=== PATIENT | female | born 1990 | race Caucasian/White ===

== ENCOUNTER → 2018-07-02 12:17 | Outpatient (CLI) | payer BC, SELFPAY ==
[2018-07-02 14:08] LABS: Influenza A and B by PCR Rapid Negative (Negative)
== END ==
PROVIDERS: Visit Provider Physician Assistant
DX: R68.89 Other general symptoms and signs (principal)
CPT/HCPCS: 87400

== ENCOUNTER 2018-07-04 17:46 | Emergency (ER) | payer BC, SELFPAY ==
[2018-07-04 18:06] VITALS: BP 116/83; PULSE 108; RESP 18; TEMP 36.9; O2SAT 100; BMI 32.3
[2018-07-04] MEDS: LIDOCAINE VISCOUS 2% 15 ML SOLUTION PO (19:09)
--- NOTE | 2018-07-04 19:09 | ED_ITS ---
HPI - URI/Sore Throat General Chief Complaint: Upper Respiratory Symptoms Stated Complaint: jaw swelling, given antibiotics,not better Time Seen by Provider: 07/04/18 18:50 Source: patient Mode of arrival: ambulatory Limitations: no limitations History of Present Illness HPI Narrative: patient a 27-year-old female presents with sore throat ongoing for about 6 days. She was seen evaluated at the walk-in 07/02/2018 she is diagnosed with strep she was started on amoxicillin 500 mg twice a day she says it is not helping. She continues to have pain she actually has some sores on her mouth. He is drinking some fluids. She had Motrin at around 530. MD Complaint: fever and sore throat Exacerbating factors: swallowing Related Data Previous Rx's Medication Instructions Recorded amoxicillin 500 mg capsule 500 mg PO BID 10 Days #20 cap 07/02/18 Magic mouthwash 5 ml PO TID #90 ml 07/04/18 amoxicillin 500 mg PO TID 3 Days #9 cap 07/04/18 Allergies Allergy/AdvReac Type Severity Reaction Status Date / Time bee pollen [BEE POLLEN] Allergy Severe Swelling Verified 07/04/18 18:10 shellfish derived Allergy Severe Anaphalaxis Verified 07/04/18 18:10 [SHELLFISH DERIVED] Review of Systems Review of Systems ROS Unobtainable: All systems reviewed & are unremarkable except as noted in HPI and below ENT Ears, Nose, Mouth, and Throat: Reports as per HPI, Denies change in voice, Denies hoarseness, Reports throat swelling and Denies tongue swelling Cardiovascular Denies dyspnea and Denies dyspnea on exertion Respiratory Denies cough, Denies dyspnea, Denies dyspnea on exertion and Denies wheezing Gastrointestinal Gastrointestinal: Denies abdominal pain, Denies change in bowel habits, Denies diarrhea, Denies nausea and Denies vomiting Musculoskeletal Denies back pain, Denies muscle weakness, Denies numbness and Denies tingling Integumentary/Breasts Denies pruritus, Denies erythema, Denies rash and Denies wounds Neurologic Denies numbness and Denies tingling Allergic/Immunologic Reports throat swelling, Denies tongue swelling and Denies wheezing [facility] Social History Smoking Status: Never smoker Exam Initial Vital Signs Initial Vital Signs: Vital Signs Temperature 98.4 F 07/04/18 18:06 Pulse Rate 108 H 07/04/18 18:06 Respiratory Rate 18 07/04/18 18:06 Blood Pressure 116/83 07/04/18 18:06 Pulse Oximetry 100 07/04/18 18:06 GENERAL: tearful crying appears in HEENT: Head atraumatic,EOMI, pupils reactive, [PHARYNX:] erythematous right tonsil is quite enlarged with exudate. Uvula is touching right tonsil but uvula itself airway some cervical anterior lymphadenopathy right. She is managing secretions. Does appear to have some canker sores well CARDIOVASCULAR: Regular rate and rhythm without murmurs, rubs or gallops. no stridor, no change in voice RESPIRATORY: Breath sounds equal bilaterally, no wheezes rales or rhonchi. ABDOMEN: Soft, nontender. Normoactive bowel sounds all 4 quadrants. No guarding or rebound. EXTREMITIES: Normal range of motion, no clubbing or edema. Neurovascularly intact NEUROLOGICAL: Alert and oriented x4. SKIN: Warm, dry, no laceration, no petechiae, no rashes or lesions. Course Orders Ordered: Discontinued Medications Dexamethasone (Decadron) 10 mg PO NOW ONE Stop: 07/04/18 19:01 Last Admin: 07/04/18 19:10 Dose: 10 mg Lidocaine HCl (Viscous Lidocaine 2%) 15 ml PO NOW ONE Stop: 07/04/18 19:01 Last Admin: 07/04/18 19:09 Dose: 15 ml Vital Signs - 8 hr 07/04/18 18:06 07/04/18 20:04 Temperature 98.4 F Pulse Rate 108 H 104 H Respiratory Rate 18 16 Blood Pressure 116/83 107/85 Pulse Oximetry 100 99 MDM - URI/Sore Throat Lab Data Point of Care Testing Rapid Strep A Negative [facility] Narrative Medical decision making narrative: ETIOLOGIES CONSIDERED: PERITONSILLAR ABSCESS, RETRO PHARYNGEAL ABSCESS. At this time patient does not have hard palate swelling or significant uvula deviation, the uvula is touching the right tonsil but is itself is not swollen. She also is managing her own secretions. No hoarse voice. PATIENT'S MOUTH DOES FEEL BETTER AFTER SOME VISCOUS LIDOCAINE. I suspect patient is partially treated because her strep test is negative. His however she does not feel like her symptoms have improved recommend continuing amoxicillin he likely needs longer. She is able to drink fluids. I discussed all findings with the patient, Education has been performed regarding treatment plan, diagnosis, warning signs and symptoms and all concerns have been addressed. Verbally agree with and understood all of the above. Discharge Plan Departure Patient Disposition: Home Clinical Impression: Acute streptococcal pharyngitis Discharge Date/Time: 07/04/18 20:05 Interventions: ED Discharge Assessment Last Done: 07/04/18 20:04 Instructions: Strep Throat Activity Restrictions/Additional Instructions: *You have been diagnosed with strep pharyngitis *What to do: strep is negative today which is a sign that the antibiotic is working. *Continue to take medications as directed: FAXED TO [facility] Magic mouthwash swish and swallow before meals amoxicillin 500 mg 3 times a day *Follow up with your primary care provider in 2-3 days *Return to ER if you should have Inability to swallow your own spit, change in voice, worsening pain any new, worsening or concerning symptoms Prescriptions: New amoxicillin 500 mg capsule 500 mg PO TID 3 Days Qty: 9 RF: 0 Magic mouthwash 5 ml PO TID Qty: 90 RF: 0 No Action amoxicillin 500 mg capsule 500 mg PO BID 10 Days Qty: 20 RF: 0
[2018-07-04] MEDS: DEXAMETHASONE 10 MG/ML VIAL PO (19:10)
[2018-07-04 20:04] VITALS: BP 107/85; PULSE 104; RESP 16; O2SAT 99
== END 2018-07-04 20:05 | disposition home or self-care (01) ==
PROVIDERS: Emergency Provider Emergency Medicine
DX: J02.0 Streptococcal pharyngitis (principal)
CPT/HCPCS: 87880; 99282; 99283; J1100

== ENCOUNTER 2018-10-16 20:50 | Emergency (ER) | payer BC, OTHER, MEDICAID, SELFPAY ==
[2018-10-16 21:00] VITALS: BP 115/80; PULSE 109; RESP 22; TEMP 36.6; O2SAT 100
[2018-10-16 21:27] LABS: Add Manual Diff / Slide Review NO; Basophils Absolute Auto 100 /uL (0-100); Basophils Percent Auto 0.7 % (0-2); Eosinophils Absolute Auto 300 /uL (0-450); Eosinophils Percent Auto 2.6 % (2-4); Hematocrit 43.5 % (36-46); Hemoglobin 14.5 g/dL (12.0-16.0); Lymphocytes Absolute Auto 2700 /uL (1100-4500); Lymphocytes Percent Auto 26.5 % (25-40); Mean Corpuscular HGB Conc 33.3 % (30-36); Mean Corpuscular Hemoglobin 28.9 PG (26-34); Mean Corpuscular Volume 86.8 fL (80-100); Monocytes Absolute Auto 800 /uL (0-900); Monocytes Percent Auto 7.9 % (3-14); Neutrophils Absolute Auto 6200 /uL (1500-7000); Neutrophils Percent Auto 62.3 % (50-75); Platelet Count 357 X10^3/uL (150-400); Red Blood Cell Count 5.01 X10^6/uL (4.0-5.2); Red Cell Distribution Width 13.7 % (11.6-14.8)
[2018-10-16 21:37] LABS: Alanine Aminotransferase 19 IU/L (9-52); Albumin 4.4 g/dL (3.5-5.0); Albumin Globulin Ratio 1.3 (1.0-2.8); Alkaline Phosphatase 56 U/L (38-126); Aspartate Aminotransferase 21 IU/L (14-36); BUN Creatinine Ratio 12.5 (6-22); Bilirubin Total 0.3 mg/dL (0.2-1.3); Blood Urea Nitrogen 10 mg/dL (7-17); Calcium 9.3 mg/dL (8.4-10.2); Carbon Dioxide 24 mmol/L (22-32); Chloride 105 mmol/L (98-107); Estimated Glomerular Filt Rate > 60.0 mL/min (>60); Globulin 3.4 g/dL (1.7-4.1); Glucose 82 mg/dL (70-100); HEMOLYSIS 21 (0-50); Potassium 3.8 mmol/L (3.4-5.1); Sodium 139 mmol/L (137-145); Total Protein 7.8 g/dL (6.3-8.2)
[2018-10-16 21:54] LABS: HCG Quantitative /Beta subunit 2330.1 mIU/mL
--- NOTE | 2018-10-16 21:58 | DI.US.S_ITS ---
PROCEDURE: US OB <= 14 WEEKS FETUS INDICATIONS: POSITIVE HUMAN CHORIONIC GONADOTROPIN, VAGINAL BLEEDING OUTSIDE/PRIOR DATING DATA: Last menstrual period (LMP): 09/02/18. LMP-based estimated date of delivery (LATRELL): 06/09/19. First dating scan (date and location): 10/16/18. Estimated date of delivery (LATRELL) from first dating scan: 06/12/19. TECHNIQUE: Real-time scanning was performed of the fetus and maternal pelvic organs, with image documentation. COMPARISON: None. FINDINGS: Embryo: Single living intrauterine gestation identified. pole was noted. [place]-rump length measures 0.3 cm corresponding to ultrasound gestational age of 5 weeks 6 days. heart rate measured at 110 beats per minute. Measurement variability in dating: +/- 4 weeks by LMP, +/- 7 days by mean sac diameter (use before 6 weeks gestation if crown-rump length not able to be measured), +/- 5 days by crown-rump length (up to 8 weeks 6 days gestation), +/- 7 days by crown-rump length (up to 13 weeks 6 days gestation). Maternal organs: Right corpus luteal cyst noted. Limited images through the kidneys demonstrate no hydronephrosis. IMPRESSION: Single living intrauterine with ultrasound estimated gestational age of 5 weeks 6 days corresponding to ultrasound LATRELL of 06/12/19. Dictated by: Tosin Roberts MD, PhD on 10/17/2018 at 9:17 Approved by: Tosin Roberts MD, PhD on 10/17/2018 at 9:19
[2018-10-16 22:49] VITALS: BP 105/71; PULSE 90; RESP 17; O2SAT 99
--- NOTE | 2018-10-17 00:09 | ED.PREGNANCY ---
HPI - General Chief complaint: Vaginal Bleeding Stated complaint: , not sure how far, bleeding Time Seen by Provider: 10/16/18 22:05 Source: patient and family Mode of arrival: ambulatory Limitations: no limitations History of Present Illness HPI Narrative: 27-year-old female nonsmoker in early presents with mild pelvic cramping and some spotting. She is not dizzy or weak or lightheaded. She denies dysuria, frequency or urgency. She denies any fever or shaking chills. She has yet to establish with Ob. She states her bleeding is minimal and certainly does not come close to saturating a pad Onset (ago): hour(s) Pain Consistency: intermittent Location: pelvis Severity: mild Quality: Cramping Relieving factors: none Exacerbating factors: none Associated symptoms: vaginal bleeding Vaginal discharge: none Vaginal bleeding: light and clots Patient : Yes OB History - Current : no complications OB History - Previous Pregnancies: no complications Related Data Previous Rx's Medication Instructions Recorded hydrocodone-acetaminophen [[place]] 1 tab PO Q4-6H PRN #7 tab 10/18/18 Allergies Allergy/AdvReac Type Severity Reaction Status Date / Time bee pollen [BEE POLLEN] Allergy Severe Swelling Verified 10/18/18 10:48 shellfish derived Allergy Severe Anaphalaxis Verified 10/18/18 10:48 [SHELLFISH DERIVED] Review of Systems Constitutional Denies chills, Denies fever(s), Denies lethargy and Denies weakness Eyes Denies change in vision, Denies eye discharge, Denies irritation and Denies loss of vision ENT Ears, Nose, Mouth, and Throat: Denies change in voice, Denies neck pain and Denies sore throat Cardiovascular Denies chest pain, Denies irregular heart rhythm, Denies lightheadedness, Denies palpitations, Denies dyspnea, Denies dyspnea on exertion and Denies orthopnea Respiratory Denies cough, Denies dyspnea, Denies dyspnea on exertion and Denies wheezing Gastrointestinal Gastrointestinal: Denies abdominal pain, Denies change in bowel habits, Denies diarrhea, Denies nausea and Denies vomiting Genitourinary Reports abnormal vaginal bleeding, Denies hematuria, Reports pelvic pain, Denies flank pain, Denies urinary incontinence and Denies urinary urgency Musculoskeletal Denies neck pain Integumentary/Breasts Denies pruritus, Denies erythema, Denies rash and Denies wounds Neurologic Denies confusion, Denies loss of vision and Denies weakness Psychiatric Denies anxiety, Denies confusion, Denies depression, Denies homicidal ideation and Denies suicidal ideation Endocrine Denies palpitations Hematologic/Lymphatic Denies easy bruising Allergic/Immunologic Denies wheezing PMFSH - Past Medical History Patient : Yes Exam Initial Vital Signs Initial Vital Signs: Vital Signs Temperature 97.8 F 10/16/18 21:00 Pulse Rate 109 H 10/16/18 21:00 Respiratory Rate 22 10/16/18 21:00 Blood Pressure 115/80 10/16/18 21:00 Pulse Oximetry 100 10/16/18 21:00 Const General: cooperative and well developed Nutritional Appearance: well nourished Orientation: alert, awake, oriented x3 and not confused HENGA Head: normocephalic and atraumatic Ears: external ears normal and TM's normal bilaterally Nose: external nose normal and No nasal discharge Face and sinus: sinuses nontender, face symmetric, no sinus tenderness and No dry mucous membranes Mouth: oral mucosae normal and moist mucous membranes Teeth and gingiva: dentition normal Throat: tonsils normal and uvula midline Eyes General: appearance normal, both eyes and all related structures Eyelids: eyelids normal Conjunctivae: conjunctivae normal Sclera: sclerae normal Pupils: PERRL EOM: EOM intact bilaterally Neck Neck: normal visual inspection, trachea midline, No lymphadenopathy, No midline deformity and No JVD Lymphatic: No lymphedema Chest Chest: normal inspection of the chest Resp Effort & Inspection: normal respiratory effort, able to speak in complete sentences, no respiratory distress and no use of accessory muscles Auscultation: clear to auscultation bilaterally, no rales, no rhonchi and no wheezes Cardio Rate: regular rate Rhythm: regular rhythm Heart Sounds: no click, no gallops, no murmurs and no rubs Pulses: normal peripheral pulses GI Inspection: non-distended Palpation: soft, no hepatosplenomegaly, No guarding, No pulsatile mass and No tender Auscultation: normal bowel sounds Back/Spine/Pelvis Back: No CVA tenderness Cervical Spine: cervical ROM normal and No pain with cervical ROM Thoracic/Lumbar Spine: thoracic and lumbar spine normal to inspection Skin General: no rashes or lesions noted, No jaundice and No petechiae Neuro General: alert, oriented x3, gait normal and no focal motor deficits Speech: speech normal Extrem General: full ROM, no clubbing, cyanosis or edema, no pedal edema and no calf tenderness Psych Appearance: well kempt Mental Status: mental status grossly normal Attitude: cooperative Thought Content: normal and suicidality Judgment: judgment good Course Orders Ordered: ED Orders 10/16/18 21:15 ABO RH Type Stat Beta HCG, Quant [HCG Quantitative] Stat Complete Blood Count AUTO DIFF Stat Comprehensive Metabolic Panel Stat 10/16/18 21:58 OB <= 14 weeks fetus Stat Vital Signs - 8 hr 10/16/18 21:00 10/16/18 22:49 Temperature 97.8 F Pulse Rate 109 H 90 Respiratory Rate 22 17 Blood Pressure 115/80 Blood Pressure [Left Arm] 105/71 Pulse Oximetry 100 99 MDM - OB/Uterine Contractions Lab Data Result diagrams: 10/16/18 21:15 10/16/18 21:15 Lab Results 10/16/18 10/16/18 10/16/18 Range/Units 21:15 21:15 21:15 WBC 10.0 (4.5-11.0) X10^3/uL RBC 5.01 (4.0-5.2) X10^6/uL Hgb 14.5 (12.0-16.0) g/dL Hct 43.5 (36-46) % MCV 86.8 (80-100) fL MCH 28.9 (26-34) PG MCHC 33.3 (30-36) % RDW 13.7 (11.6-14.8) % Plt Count 357 (150-400) X10^3/uL Neut % (Auto) 62.3 (50-75) % Lymph % (Auto) 26.5 (25-40) % [place] % (Auto) 7.9 (3-14) % Eos % (Auto) 2.6 (2-4) % Baso % (Auto) 0.7 (0-2) % Neut # (Auto) 6200 (6138-1332) /uL Lymph # (Auto) 2700 (0993-0032) /uL [place] # (Auto) 800 (0-900) /uL Eos # (Auto) 300 (0-450) /uL Baso # (Auto) 100 (0-100) /uL Sodium 139 (137-145) mmol/L Potassium 3.8 (3.4-5.1) mmol/L Chloride 105 (98-107) mmol/L Carbon Dioxide 24 (22-32) mmol/L BUN 10 (7-17) mg/dL Creatinine 0.80 (0.52-1.04) mg/dL Estimated GFR > 60.0 (>60) mL/min BUN/Creatinine Ratio 12.5 (6-22) Glucose 82 (70-100) mg/dL Calcium 9.3 (8.4-10.2) mg/dL Total Bilirubin 0.3 (0.2-1.3) mg/dL AST 21 (14-36) IU/L ALT 19 (9-52) IU/L Alkaline Phosphatase 56 (38-126) U/L Total Protein 7.8 (6.3-8.2) g/dL Albumin 4.4 (3.5-5.0) g/dL Globulin 3.4 (1.7-4.1) g/dL Albumin/Globulin Ratio 1.3 (1.0-2.8) HCG, Quant 2330.1 mIU/mL Blood Type O Positive Point of Care Testing Test Results Positive Urine Dip Bedside Urine Glucose Negative Bedside Urine Bilirubin - Negative Bedside Urine Ketone - Negative Urine Specific [place] 1.015 Bedside Urine Occult Blood +++ Bedside Urine pH 6.5 Bedside Urine Protein - Negative Bedside Urine Urobilinogen - Negative Bedside Urine Nitrite - Negative Bedside Urine Leukocytes +/- 15 Esterase Imaging Data US - abdomen: Radiologist's impression: [place] [address] Ultrasound Report Signed Patient: Melissa Castelan R#: [id number] : 1990Acct:[id number] Age/Sex: te of Service: 10/16/18 Loc: ED Accession Number: [id number] Procedure: US OB <= 14 weeks fetus Ordering Provider: Danelle Dodd PROCEDURE: US OB <= 14 WEEKS FETUS INDICATIONS: POSITIVE HUMAN CHORIONIC GONADOTROPIN, VAGINAL BLEEDING OUTSIDE/PRIOR DATING DATA: Last menstrual period (LMP): 09/02/18. LMP-based estimated date of delivery (LATRELL): 06/09/19. First dating scan (date and location): 10/16/18. Estimated date of delivery (LATRELL) from first dating scan: 06/12/19. TECHNIQUE: Real-time scanning was performed of the fetus and maternal pelvic organs, with image documentation. COMPARISON: None. FINDINGS: Embryo: Single living intrauterine gestation identified. pole was noted. [place]-rump length measures 0.3 cm corresponding to ultrasound gestational age of 5 weeks 6 days. heart rate measured at 110 beats per minute. Measurement variability in dating: +/- 4 weeks by LMP, +/- 7 days by mean sac diameter (use before 6 weeks gestation if crown-rump length not able to be measured), +/- 5 days by crown-rump length (up to 8 weeks 6 days gestation), +/- 7 days by crown-rump length (up to 13 weeks 6 days gestation). Maternal organs: Right corpus luteal cyst noted. Limited images through the kidneys demonstrate no hydronephrosis. IMPRESSION: Single living intrauterine with ultrasound estimated gestational age of 5 weeks 6 days corresponding to ultrasound LATRELL of 06/12/19. Dictated by: Tosin Roberts MD, PhD on 10/17/2018 at 9:17 MDM Narrative Medical decision making narrative: Multiple etiologies for patient's symptoms considered including: [Implantation bleeding versus early miscarriage versus other] Patient's symptoms improved or duration of stay with above-stated therapies. Findings and discharge diagnosis discussed with patient/family followed by verbalization of understanding Return precautions discussed with patient/family whom verbalize understanding. Discharge Plan Departure Patient Disposition: Home Clinical Impression: Abnormal vaginal bleeding Qualifiers: Weeks of gestation: less than 8 weeks Qualified Code(s): Z3A.01 - Less than 8 weeks gestation of Discharge Date/Time: 10/17/18 00:27 Interventions: ED Discharge Assessment Last Done: 10/17/18 00:27 Instructions: DI for Vaginal Bleeding During Activity Restrictions/Additional Instructions: *You have been diagnosed with [vaginal bleeding during early ] *What to do: *Take medications as directed *Follow up with your OB provider in 2-3 days, call for an appointment. Let them know you were seen in the Emergency Department and that we ask that you be seen in follow up *Return to ER if you should have any new, worsening or concerning symptoms, such as [increasing pain, bleeding through more than 1 pad per hour, fever over 101 F versus other] Prescriptions: No Action hydrocodone-acetaminophen [[place]] 5-325 mg tablet 1 tab PO Q4-6H PRN (Reason: pain) Qty: 7 RF: 0 Referrals: Leeroy Ren MD [Physician] -
[2018-10-17 00:27] VITALS: BP 101/70; PULSE 85; RESP 16
--- NOTE | 2018-10-19 07:58 | ED_ITS ---
HPI - General Chief complaint: Vaginal Bleeding Stated complaint: , not sure how far, bleeding Time Seen by Provider: 10/16/18 22:05 Source: patient and family Mode of arrival: ambulatory Limitations: no limitations History of Present Illness HPI Narrative: 27-year-old female nonsmoker in early presents with mild pelvic cramping and some spotting. She is not dizzy or weak or light headed. She denies dysuria, frequency or urgency. She denies any fever or shaking chills. She has yet to establish with Ob. She states her bleeding is minimal and certainly does not come close to saturating a pad Onset (ago): hour(s) Pain Consistency: intermittent Location: pelvis Severity: mild Quality: Cramping Relieving factors: none Exacerbating factors: none Associated symptoms: vaginal bleeding Vaginal discharge: none Vaginal bleeding: light and clots Patient : Yes OB History - Current : no complications OB History - Previous Pregnancies: no complications Related Data Previous Rx's Medication Instructions Recorded hydrocodone-acetaminophen [[place]] 1 tab PO Q4-6H PRN #7 tab 10/18/18 Allergies Allergy/AdvReac Type Severity Reaction Status Date / Time bee pollen [BEE POLLEN] Allergy Severe Swelling Verified 10/18/18 10:48 shellfish derived Allergy Severe Anaphalaxis Verified 10/18/18 10:48 [SHELLFISH DERIVED] Review of Systems Constitutional Denies chills, Denies fever(s), Denies lethargy and Denies weakness Eyes Denies change in vision, Denies eye discharge, Denies irritation and Denies loss of vision ENT Ears, Nose, Mouth, and Throat: Denies change in voice, Denies neck pain and Denies sore throat Cardiovascular Denies chest pain, Denies irregular heart rhythm, Denies lightheadedness, Denies palpitations, Denies dyspnea, Denies dyspnea on exertion and Denies orthopnea Respiratory Denies cough, Denies dyspnea, Denies dyspnea on exertion and Denies wheezing Gastrointestinal Gastrointestinal: Denies abdominal pain, Denies change in bowel habits, Denies diarrhea, Denies nausea and Denies vomiting Genitourinary Reports abnormal vaginal bleeding, Denies hematuria, Reports pelvic pain, Denies flank pain, Denies urinary incontinence and Denies urinary urgency Musculoskeletal Denies neck pain Integumentary/Breasts Denies pruritus, Denies erythema, Denies rash and Denies wounds Neurologic Denies confusion, Denies loss of vision and Denies weakness Psychiatric Denies anxiety, Denies confusion, Denies depression, Denies homicidal ideation and Denies suicidal ideation Endocrine Denies palpitations Hematologic/Lymphatic Denies easy bruising Allergic/Immunologic Denies wheezing PMFSH - Past Medical History Patient : Yes Exam Initial Vital Signs Initial Vital Signs: Vital Signs Temperature 97.8 F 10/16/18 21:00 Pulse Rate 109 H 10/16/18 21:00 Respiratory Rate 22 10/16/18 21:00 Blood Pressure 115/80 10/16/18 21:00 Pulse Oximetry 100 10/16/18 21:00 Const General: cooperative and well developed Nutritional Appearance: well nourished Orientation: alert, awake, oriented x3 and not confused HENUT Head: normocephalic and atraumatic Ears: external ears normal and TM's normal bilaterally Nose: external nose normal and No nasal discharge Face and sinus: sinuses nontender, face symmetric, no sinus tenderness and No dry mucous membranes Mouth: oral mucosae normal and moist mucous membranes Teeth and gingiva: dentition normal Throat: tonsils normal and uvula midline Eyes General: appearance normal, both eyes and all related structures Eyelids: eyelids normal Conjunctivae: conjunctivae normal Sclera: sclerae normal Pupils: PERRL EOM: EOM intact bilaterally Neck Neck: normal visual inspection, trachea midline, No lymphadenopathy, No midline deformity and No JVD Lymphatic: No lymphedema Chest Chest: normal inspection of the chest Resp Effort & Inspection: normal respiratory effort, able to speak in complete sentences, no respiratory distress and no use of accessory muscles Auscultation: clear to auscultation bilaterally, no rales, no rhonchi and no wheezes Cardio Rate: regular rate Rhythm: regular rhythm Heart Sounds: no click, no gallops, no murmurs and no rubs Pulses: normal peripheral pulses GI Inspection: non-distended Palpation: soft, no hepatosplenomegaly, No guarding, No pulsatile mass and No tender Auscultation: normal bowel sounds Back/Spine/Pelvis Back: No CVA tenderness Cervical Spine: cervical ROM normal and No pain with cervical ROM Thoracic/Lumbar Spine: thoracic and lumbar spine normal to inspection Skin General: no rashes or lesions noted, No jaundice and No petechiae Neuro General: alert, oriented x3, gait normal and no focal motor deficits Speech: speech normal Extrem General: full ROM, no clubbing, cyanosis or edema, no pedal edema and no calf tenderness Psych Appearance: well kempt Mental Status: mental status grossly normal Attitude: cooperative Thought Content: normal and suicidality Judgment: judgment good Course Orders Ordered: ED Orders 10/16/18 21:15 ABO RH Type Stat Beta HCG, Quant [HCG Quantitative] Stat Complete Blood Count AUTO DIFF Stat Comprehensive Metabolic Panel Stat 10/16/18 21:58 OB <= 14 weeks fetus Stat Vital Signs - 8 hr 10/16/18 21:00 10/16/18 22:49 Temperature 97.8 F Pulse Rate 109 H 90 Respiratory Rate 22 17 Blood Pressure 115/80 Blood Pressure [Left Arm] 105/71 Pulse Oximetry 100 99 MDM - OB/Uterine Contractions Lab Data Result diagrams: 10/16/18 21:15 10/16/18 21:15 Lab Results 10/16/18 10/16/18 10/16/18 Range/Units 21:15 21:15 21:15 WBC 10.0 (4.5-11.0) X10^3/uL RBC 5.01 (4.0-5.2) X10^6/uL Hgb 14.5 (12.0-16.0) g/dL Hct 43.5 (36-46) % MCV 86.8 (80-100) fL MCH 28.9 (26-34) PG MCHC 33.3 (30-36) % RDW 13.7 (11.6-14.8) % Plt Count 357 (150-400) X10^3/uL Neut % (Auto) 62.3 (50-75) % Lymph % (Auto) 26.5 (25-40) % [place] % (Auto) 7.9 (3-14) % Eos % (Auto) 2.6 (2-4) % Baso % (Auto) 0.7 (0-2) % Neut # (Auto) 6200 (1320-8435) /uL Lymph # (Auto) 2700 (7470-6420) /uL [place] # (Auto) 800 (0-900) /uL Eos # (Auto) 300 (0-450) /uL Baso # (Auto) 100 (0-100) /uL Sodium 139 (137-145) mmol/L Potassium 3.8 (3.4-5.1) mmol/L Chloride 105 (98-107) mmol/L Carbon Dioxide 24 (22-32) mmol/L BUN 10 (7-17) mg/dL Creatinine 0.80 (0.52-1.04) mg/dL Estimated GFR > 60.0 (>60) mL/min BUN/Creatinine Ratio 12.5 (6-22) Glucose 82 (70-100) mg/dL Calcium 9.3 (8.4-10.2) mg/dL Total Bilirubin 0.3 (0.2-1.3) mg/dL AST 21 (14-36) IU/L ALT 19 (9-52) IU/L Alkaline Phosphatase 56 (38-126) U/L Total Protein 7.8 (6.3-8.2) g/dL Albumin 4.4 (3.5-5.0) g/dL Globulin 3.4 (1.7-4.1) g/dL Albumin/Globulin Ratio 1.3 (1.0-2.8) HCG, Quant 2330.1 mIU/mL Blood Type O Positive Point of Care Testing Test Results Positive Urine Dip Bedside Urine Glucose Negative Bedside Urine Bilirubin - Negative Bedside Urine Ketone - Negative Urine Specific [place] 1.015 Bedside Urine Occult Blood +++ Bedside Urine pH 6.5 Bedside Urine Protein - Negative Bedside Urine Urobilinogen - Negative Bedside Urine Nitrite - Negative Bedside Urine Leukocytes +/- 15 Esterase Imaging Data US - abdomen: Radiologist's impression: [place] [address] Ultrasound Report Signed Patient: Melissa Castelan R#: [id number] : 1990Acct:[id number] Age/Sex: te of Service: 10/16/18 Loc: ED Accession Number: [id number] Procedure: US OB <= 14 weeks fetus Ordering Provider: Danelle Dodd PROCEDURE: US OB <= 14 WEEKS FETUS INDICATIONS: POSITIVE HUMAN CHORIONIC GONADOTROPIN, VAGINAL BLEEDING OUTSIDE/PRIOR DATING DATA: Last menstrual period (LMP): 09/02/18. LMP-based estimated date of delivery (LATRELL): 06/09/19. First dating scan (date and location): 10/16/18. Estimated date of delivery (LATRELL) from first dating scan: 06/12/19. TECHNIQUE: Real-time scanning was performed of the fetus and maternal pelvic organs, with image documentation. COMPARISON: None. FINDINGS: Embryo: Single living intrauterine gestation identified. pole was noted. [place]-rump length measures 0.3 cm corresponding to ultrasound gestational age of 5 weeks 6 days. heart rate measured at 110 beats per minute. Measurement variability in dating: +/- 4 weeks by LMP, +/- 7 days by mean sac diameter (use before 6 weeks gestation if crown-rump length not able to be measured), +/- 5 days by crown-rump length (up to 8 weeks 6 days gestation), +/- 7 days by crown-rump length (up to 13 weeks 6 days gestation). Maternal organs: Right corpus luteal cyst noted. Limited images through the kidneys demonstrate no hydronephrosis. IMPRESSION: Single living intrauterine with ultrasound estimated gestational age of 5 weeks 6 days corresponding to ultrasound LATRELL of 06/12/19. Dictated by: Tosin Roberts MD, PhD on 10/17/2018 at 9:17 MDM Narrative Medical decision making narrative: Multiple etiologies for patient's symptoms considered including: [Implantation bleeding versus early miscarriage versus other] Patient's symptoms improved or duration of stay with above-stated therapies. Findings and discharge diagnosis discussed with patient/family followed by verbalization of understanding Return precautions discussed with patient/family whom verbalize understanding. Discharge Plan Departure Patient Disposition: Home Clinical Impression: Abnormal vaginal bleeding Qualifiers: Weeks of gestation: less than 8 weeks Qualified Code(s): Z3A.01 - Less than 8 weeks gestation of Discharge Date/Time: 10/17/18 00:27 Interventions: ED Discharge Assessment Last Done: 10/17/18 00:27 Instructions: DI for Vaginal Bleeding During Activity Restrictions/Additional Instructions: *You have been diagnosed with [vaginal bleeding during early ] *What to do: *Take medications as directed *Follow up with your OB provider in 2-3 days, call for an appointment. Let them know you were seen in the Emergency Department and that we ask that you be seen in follow up *Return to ER if you should have any new, worsening or concerning symptoms, such as [increasing pain, bleeding through more than 1 pad per hour, fever over 101 F versus other] Prescriptions: No Action hydrocodone-acetaminophen [[place]] 5-325 mg tablet 1 tab PO Q4-6H PRN (Reason: pain) Qty: 7 RF: 0 Referrals: Leeroy Ren MD [Physician] -
== END 2018-10-17 00:27 | disposition home or self-care (01) ==
PROVIDERS: Emergency Provider Emergency Medicine
DX: O20.9 Hemorrhage in early pregnancy, unspecified (principal); Z3A.01 Less than 8 weeks gestation of pregnancy
CPT/HCPCS: 36415; 76801; 76817; 80053; 81003; 81025; 84702; 85025; 86900; 86901; 99282; 99284

== ENCOUNTER 2018-10-18 10:41 | Emergency (ER) | payer BC, OTHER, MEDICAID, SELFPAY ==
[2018-10-18 10:42] VITALS: BP 126/88; PULSE 92; RESP 16; O2SAT 100; BMI 36.7
--- NOTE | 2018-10-18 11:03 | ED.PREGNANCY ---
HPI - General Chief complaint: OB/Uterine Contractions Stated complaint: spotting, 3 wks Time Seen by Provider: 10/18/18 10:47 Source: patient Mode of arrival: EMS Limitations: no limitations History of Present Illness HPI Narrative: Patient is a at 5 weeks EGA. She was seen here in the emergency department a couple days ago for spotting. Had ultrasound at that point which showed a 5 week IUP. She states that the bleeding from that time has never really stopped and she states that this morning she had an increase in cramping and bleeding and passing of clots. No vomiting. Patient : Yes Related Data Previous Rx's Medication Instructions Recorded hydrocodone-acetaminophen [[place]] 1 tab PO Q4-6H PRN #7 tab 10/18/18 Allergies Allergy/AdvReac Type Severity Reaction Status Date / Time bee pollen [BEE POLLEN] Allergy Severe Swelling Verified 10/18/18 10:48 shellfish derived Allergy Severe Anaphalaxis Verified 10/18/18 10:48 [SHELLFISH DERIVED] Review of Systems Constitutional Denies fever(s) Cardiovascular Denies chest pain and Denies dyspnea Respiratory Denies dyspnea Gastrointestinal Gastrointestinal: Reports abdominal pain, Denies change in stool character, Reports cramping and Denies diarrhea Genitourinary Denies dysuria and Reports vaginal discharge Musculoskeletal Denies myalgias and Denies arthralgias Integumentary/Breasts Denies rash Hematologic/Lymphatic Denies easy bleeding and Denies easy bruising PMFSH - Past Medical History Medical history: Reports no medical history Surgical history: Reports non-contributory Patient : Yes Psychiatric history: Reports no psych history Family history: Reports no significant family history Exam Initial Vital Signs Initial Vital Signs: Vital Signs Pulse Rate 92 H 10/18/18 10:42 Respiratory Rate 16 10/18/18 10:42 Blood Pressure 126/88 10/18/18 10:42 Pulse Oximetry 100 10/18/18 10:42 Const General: cooperative, well developed, well groomed and No acute distress Orientation: alert and awake Resp Effort & Inspection: normal respiratory effort Auscultation: clear to auscultation bilaterally Cardio Rate: regular rate Rhythm: regular rhythm GI Inspection: non-distended Palpation: soft, No firm, No guarding and tender (Lower abdomen) Skin Lesions: no lesions Rashes: no rashes Neuro General: alert, awake and oriented x3 Cognition: normal cognition Speech: speech normal Extrem General: normal to inspection and capillary refill normal Psych Appearance: grossly normal and well kempt Course Orders Ordered: ED Orders 10/18/18 11:08 US pelvic complete Stat 10/18/18 11:25 ABO RH Type Stat Basic Metabolic Panel Stat Complete Blood Count AUTO DIFF Stat HCG Quantitative Stat Discontinued Medications Hydrocodone Bitart/Acetaminophen ([place] 5/325) 1 tab PO NOW ONE Stop: 10/18/18 12:14 Last Admin: 10/18/18 12:17 Dose: 1 tab Vital Signs - 8 hr 10/18/18 14:00 10/18/18 14:10 Pulse Rate 72 87 Respiratory Rate 20 18 Blood Pressure 108/78 Blood Pressure [Right Arm] 122/66 Pulse Oximetry 100 97 MDM - OB/Uterine Contractions Lab Data Attestation: I reviewed the patient's lab results. Result diagrams: 10/18/18 11:25 10/18/18 11:25 Lab Results 10/18/18 10/18/18 10/18/18 Range/Units 11:25 11:25 11:25 WBC 10.4 (4.5-11.0) X10^3/uL RBC 5.05 (4.0-5.2) X10^6/uL Hgb 14.4 (12.0-16.0) g/dL Hct 44.1 (36-46) % MCV 87.3 (80-100) fL MCH 28.6 (26-34) PG MCHC 32.8 (30-36) % RDW 13.8 (11.6-14.8) % Plt Count 335 (150-400) X10^3/uL Neut % (Auto) 74.8 (50-75) % Lymph % (Auto) 16.1 L (25-40) % [place] % (Auto) 7.0 (3-14) % Eos % (Auto) 1.7 L (2-4) % Baso % (Auto) 0.4 (0-2) % Neut # (Auto) 7800 H (9422-8354) /uL Lymph # (Auto) 1700 (6495-3043) /uL [place] # (Auto) 700 (0-900) /uL Eos # (Auto) 200 (0-450) /uL Baso # (Auto) 0 (0-100) /uL Sodium (137-145) mmol/L Potassium (3.4-5.1) mmol/L Chloride (98-107) mmol/L Carbon Dioxide (22-32) mmol/L BUN (7-17) mg/dL Creatinine (0.52-1.04) mg/dL Estimated GFR (>60) mL/min BUN/Creatinine Ratio (6-22) Glucose (70-100) mg/dL Calcium (8.4-10.2) mg/dL HCG, Quant 1760.9 mIU/mL Blood Type O Positive 10/18/18 Range/Units 11:25 WBC (4.5-11.0) X10^3/uL RBC (4.0-5.2) X10^6/uL Hgb (12.0-16.0) g/dL Hct (36-46) % MCV (80-100) fL MCH (26-34) PG MCHC (30-36) % RDW (11.6-14.8) % Plt Count (150-400) X10^3/uL Neut % (Auto) (50-75) % Lymph % (Auto) (25-40) % [place] % (Auto) (3-14) % Eos % (Auto) (2-4) % Baso % (Auto) (0-2) % Neut # (Auto) (5539-8789) /uL Lymph # (Auto) (7970-9250) /uL [place] # (Auto) (0-900) /uL Eos # (Auto) (0-450) /uL Baso # (Auto) (0-100) /uL Sodium 141 (137-145) mmol/L Potassium 3.9 (3.4-5.1) mmol/L Chloride 107 (98-107) mmol/L Carbon Dioxide 22 (22-32) mmol/L BUN 9 (7-17) mg/dL Creatinine 0.60 (0.52-1.04) mg/dL Estimated GFR > 60.0 (>60) mL/min BUN/Creatinine Ratio 15.0 (6-22) Glucose 103 H (70-100) mg/dL Calcium 9.4 (8.4-10.2) mg/dL HCG, Quant mIU/mL Blood Type Imaging Data Pelvic ultrasound: Radiologist's impression: [address] [address] Ultrasound Report Signed Patient: Melissa Castelan RMR#: [id number] : 1990Acct:[id number] Age/Sex: FDate of Service: 10/18/18 Loc: ED Accession Number: [id number] Procedure: US pelvic complete Ordering Provider: Ld Renner D.O. PROCEDURE: US PELVIC COMPLETE INDICATIONS: FIVE WEEKS ESTIMAGED GESTATIONAL AGE, SPOTTING TECHNIQUE: Real-time scanning was performed of the pelvic organs, with image documentation. Additional endovaginal scanning was necessary due to incomplete visualization of the adnexal and endometrial structures by transabdominal scanning. COMPARISON: None. FINDINGS: Transabdominal scanning: Limited scanning through the kidneys shows no hydronephrosis. No pathologic free abdominal or pelvic fluid. Endovaginal scanning: Uterus: Uterus is normal in size at 7.8 x 3.3 x 3.8 cm. no focal myometrial lesions are identified. However, there is a focal area of decreased echogenicity identified along the anterior aspect of the lower uterine segment, which does not demonstrate internal vascularity and may represent a focal clot. The endometrium is within normal limits and measures up to 17 mm in maximal combined thickness. Heterogeneity of the contents of the endometrium is present. No intrauterine is appreciated. No significant fluid is contained within the endometrium. The cervix is unremarkable. Ovaries: The right ovary measures 3.2 x 2.1 x 2.1 cm. The left ovary measures 2.0 x 2.1 x 2.2 cm. Both ovaries are normal in size. A dominant follicle in the right ovary is present. No cystic or solid abnormality is appreciated. No convincing intrauterine is appreciated. IMPRESSION: 1. No intrauterine or extrauterine is evident. Clinical correlation with the beta hCG levels is recommended. Followup imaging in 1 to 2 weeks would be helpful to reevaluate for viability, if the hCG levels remain positive/increasing. 2. Unremarkable ovaries. 3. Heterogeneity of the endometrium may represent focal clot versus submucosal fibroid along the lower uterine segment. Dictated by: Bacilio Holloway M.D. on 10/18/2018 at 12:09 Approved by: Bacilio Holloway M.D. on 10/18/2018 at 12:1 [facility] Narrative Medical decision making narrative: Patient is Rh positive. No indication for RhoGAM. Her ultrasound today compared with the ultrasound a couple days ago was consistent with a miscarriage. Had a long discussion with the patient and the father the baby who was at bedside regarding this. We discussed return precautions. Informed her that she should contact her OB provider for a follow-up sometime the next couple days. Patient was not anemic. No indication to admit to the hospital. Patient expressed understanding and agreement with plan. Discharge Plan Departure Patient Disposition: Home Clinical Impression: Incomplete miscarriage Discharge Date/Time: 10/18/18 14:11 Interventions: ED Discharge Assessment Last Done: 10/18/18 14:10 Instructions: DI for Miscarriage Activity Restrictions/Additional Instructions: You have no restrictions on your activity. Either this afternoon or tomorrow contact your OB provider for a follow-up. If you bleed more than several pads an hour for several hours in a row please return to the emergency department for further evaluation. Prescriptions: New hydrocodone-acetaminophen [[place]] 5-325 mg tablet 1 tab PO Q4-6H PRN (Reason: pain) Qty: 7 RF: 0 Stand Alone Forms: Work Release Note
--- NOTE | 2018-10-18 11:06 | ED_ITS ---
HPI - General Chief complaint: OB/Uterine Contractions Stated complaint: spotting, 3 wks Time Seen by Provider: 10/18/18 10:47 Source: patient Mode of arrival: EMS Limitations: no limitations History of Present Illness HPI Narrative: Patient is a at 5 weeks EGA. She was seen here in the [facility] department a couple days ago for spotting. Had ultrasound at that point which showed a 5 week IUP. She states that the bleeding from that time has never really stopped and she states that this morning she had an increase in cramping and bleeding and passing of clots. No vomiting. Patient : Yes Related Data Previous Rx's Medication Instructions Recorded hydrocodone-acetaminophen [[place]] 1 tab PO Q4-6H PRN #7 tab 10/18/18 Allergies Allergy/AdvReac Type Severity Reaction Status Date / Time bee pollen [BEE POLLEN] Allergy Severe Swelling Verified 10/18/18 10:48 shellfish derived Allergy Severe Anaphalaxis Verified 10/18/18 10:48 [SHELLFISH DERIVED] Review of Systems Constitutional Denies fever(s) Cardiovascular Denies chest pain and Denies dyspnea Respiratory Denies dyspnea Gastrointestinal Gastrointestinal: Reports abdominal pain, Denies change in stool character, Reports cramping and Denies diarrhea Genitourinary Denies dysuria and Reports vaginal discharge Musculoskeletal Denies myalgias and Denies arthralgias Integumentary/Breasts Denies rash Hematologic/Lymphatic Denies easy bleeding and Denies easy bruising PMFSH - Past Medical History Medical history: Reports no medical history Surgical history: Reports non-contributory Patient : Yes Psychiatric history: Reports no psych history Family history: Reports no significant family history Exam Initial Vital Signs Initial Vital Signs: Vital Signs Pulse Rate 92 H 10/18/18 10:42 Respiratory Rate 16 10/18/18 10:42 Blood Pressure 126/88 10/18/18 10:42 Pulse Oximetry 100 10/18/18 10:42 Const General: cooperative, well developed, well groomed and No acute distress Orientation: alert and awake Resp Effort & Inspection: normal respiratory effort Auscultation: clear to auscultation bilaterally Cardio Rate: regular rate Rhythm: regular rhythm GI Inspection: non-distended Palpation: soft, No firm, No guarding and tender (Lower abdomen) Skin Lesions: no lesions Rashes: no rashes Neuro General: alert, awake and oriented x3 Cognition: normal cognition Speech: speech normal Extrem General: normal to inspection and capillary refill normal Psych Appearance: grossly normal and well kempt Course Orders Ordered: ED Orders 10/18/18 11:08 US pelvic complete Stat 10/18/18 11:25 ABO RH Type Stat Basic Metabolic Panel Stat Complete Blood Count AUTO DIFF Stat HCG Quantitative Stat Discontinued Medications Hydrocodone Bitart/Acetaminophen ([place] 5/325) 1 tab PO NOW ONE Stop: 10/18/18 12:14 Last Admin: 10/18/18 12:17 Dose: 1 tab Vital Signs - 8 hr 10/18/18 14:00 10/18/18 14:10 Pulse Rate 72 87 Respiratory Rate 20 18 Blood Pressure 108/78 Blood Pressure [Right Arm] 122/66 Pulse Oximetry 100 97 MDM - OB/Uterine Contractions Lab Data Attestation: I reviewed the patient's lab results. Result diagrams: 10/18/18 11:25 10/18/18 11:25 Lab Results 10/18/18 10/18/18 10/18/18 Range/Units 11:25 11:25 11:25 WBC 10.4 (4.5-11.0) X10^3/uL RBC 5.05 (4.0-5.2) X10^6/uL Hgb 14.4 (12.0-16.0) g/dL Hct 44.1 (36-46) % MCV 87.3 (80-100) fL MCH 28.6 (26-34) PG MCHC 32.8 (30-36) % RDW 13.8 (11.6-14.8) % Plt Count 335 (150-400) X10^3/uL Neut % (Auto) 74.8 (50-75) % Lymph % (Auto) 16.1 L (25-40) % [place] % (Auto) 7.0 (3-14) % Eos % (Auto) 1.7 L (2-4) % Baso % (Auto) 0.4 (0-2) % Neut # (Auto) 7800 H (2582-2361) /uL Lymph # (Auto) 1700 (8616-6801) /uL [place] # (Auto) 700 (0-900) /uL Eos # (Auto) 200 (0-450) /uL Baso # (Auto) 0 (0-100) /uL Sodium (137-145) mmol/L Potassium (3.4-5.1) mmol/L Chloride (98-107) mmol/L Carbon Dioxide (22-32) mmol/L BUN (7-17) mg/dL Creatinine (0.52-1.04) mg/dL Estimated GFR (>60) mL/min BUN/Creatinine Ratio (6-22) Glucose (70-100) mg/dL Calcium (8.4-10.2) mg/dL HCG, Quant 1760.9 mIU/mL Blood Type O Positive 10/18/18 Range/Units 11:25 WBC (4.5-11.0) X10^3/uL RBC (4.0-5.2) X10^6/uL Hgb (12.0-16.0) g/dL Hct (36-46) % MCV (80-100) fL MCH (26-34) PG MCHC (30-36) % RDW (11.6-14.8) % Plt Count (150-400) X10^3/uL Neut % (Auto) (50-75) % Lymph % (Auto) (25-40) % [place] % (Auto) (3-14) % Eos % (Auto) (2-4) % Baso % (Auto) (0-2) % Neut # (Auto) (5267-5302) /uL Lymph # (Auto) (0985-9755) /uL [place] # (Auto) (0-900) /uL Eos # (Auto) (0-450) /uL Baso # (Auto) (0-100) /uL Sodium 141 (137-145) mmol/L Potassium 3.9 (3.4-5.1) mmol/L Chloride 107 (98-107) mmol/L Carbon Dioxide 22 (22-32) mmol/L BUN 9 (7-17) mg/dL Creatinine 0.60 (0.52-1.04) mg/dL Estimated GFR > 60.0 (>60) mL/min BUN/Creatinine Ratio 15.0 (6-22) Glucose 103 H (70-100) mg/dL Calcium 9.4 (8.4-10.2) mg/dL HCG, Quant mIU/mL Blood Type Imaging Data Pelvic ultrasound: Radiologist's impression: [address] [address] Ultrasound Report Signed Patient: Melissa Castelan RMR#: [id number] : 1990Acct:[id number] Age/Sex: 27 / FDate of Service: 10/18/18 Loc: ED Accession Number: [id number] Procedure: US pelvic complete Ordering Provider: Ld Renner D.O. PROCEDURE: US PELVIC COMPLETE INDICATIONS: FIVE WEEKS ESTIMAGED GESTATIONAL AGE, SPOTTING TECHNIQUE: Real-time scanning was performed of the pelvic organs, with image documentation. Additional endovaginal scanning was necessary due to incomplete visualization of the adnexal and endometrial structures by transabdominal scanning. COMPARISON: None. FINDINGS: Transabdominal scanning: Limited scanning through the kidneys shows no hydronephrosis. No pathologic free abdominal or pelvic fluid. Endovaginal scanning: Uterus: Uterus is normal in size at 7.8 x 3.3 x 3.8 cm. no focal myometrial lesions are identified. However, there is a focal area of decreased echogenicity identified along the anterior aspect of the lower uterine segment, which does not demonstrate internal vascularity and may represent a focal clot. The endometrium is within normal limits and measures up to 17 mm in maximal combined thickness. Heterogeneity of the contents of the endometrium is present. No intrauterine is appreciated. No significant fluid is contained within the endometrium. The cervix is unremarkable. Ovaries: The right ovary measures 3.2 x 2.1 x 2.1 cm. The left ovary measures 2.0 x 2.1 x 2.2 cm. Both ovaries are normal in size. A dominant follicle in the right ovary is present. No cystic or solid abnormality is appreciated. No convincing intrauterine is appreciated. IMPRESSION: 1. No intrauterine or extrauterine is evident. Clinical correlation with the beta hCG levels is recommended. Followup imaging in 1 to 2 weeks would be helpful to reevaluate for viability, if the hCG levels remain positive/increasing. 2. Unremarkable ovaries. 3. Heterogeneity of the endometrium may represent focal clot versus submucosal fibroid along the lower uterine segment. Dictated by: Bacilio Holloway M.D. on 10/18/2018 at 12:09 Approved by: Bacilio Holloway M.D. on 10/18/2018 at 12:1 [facility] Narrative Medical decision making narrative: Patient is Rh positive. No indication for RhoGAM. Her ultrasound today compared with the ultrasound a couple days ago was consistent with a miscarriage. Had a long discussion with the patient and the father the baby who was at bedside regarding this. We discussed return precautions. Informed her that she should contact her OB provider for a follow- up sometime the next couple days. Patient was not anemic. No indication to admit to the hospital. Patient expressed understanding and agreement with plan. Discharge Plan Departure Patient Disposition: Home Clinical Impression: Incomplete miscarriage Discharge Date/Time: 10/18/18 14:11 Interventions: ED Discharge Assessment Last Done: 10/18/18 14:10 Instructions: DI for Miscarriage Activity Restrictions/Additional Instructions: You have no restrictions on your activity. Either this afternoon or tomorrow contact your OB provider for a follow-up. If you bleed more than several pads an hour for several hours in a row please return to the emergency department for further evaluation. Prescriptions: New hydrocodone-acetaminophen [[place]] 5-325 mg tablet 1 tab PO Q4-6H PRN (Reason: pain) Qty: 7 RF: 0 Stand Alone Forms: Work Release Note
[2018-10-18 11:36] LABS: Add Manual Diff / Slide Review NO; Basophils Absolute Auto 0 /uL (0-100); Basophils Percent Auto 0.4 % (0-2); Eosinophils Absolute Auto 200 /uL (0-450); Eosinophils Percent Auto 1.7 % (2-4); Hematocrit 44.1 % (36-46); Hemoglobin 14.4 g/dL (12.0-16.0); Lymphocytes Absolute Auto 1700 /uL (1100-4500); Lymphocytes Percent Auto 16.1 % (25-40); Mean Corpuscular HGB Conc 32.8 % (30-36); Mean Corpuscular Hemoglobin 28.6 PG (26-34); Mean Corpuscular Volume 87.3 fL (80-100); Monocytes Absolute Auto 700 /uL (0-900); Neutrophils Absolute Auto 7800 /uL (1500-7000); Neutrophils Percent Auto 74.8 % (50-75); Platelet Count 335 X10^3/uL (150-400); Red Blood Cell Count 5.05 X10^6/uL (4.0-5.2); Red Cell Distribution Width 13.8 % (11.6-14.8); White Blood Cell Count 10.4 X10^3/uL (4.5-11.0)
[2018-10-18] MEDS: HYDROCODONE/ACET 5/325 TABLET 1 TAB PO (12:17)
[2018-10-18 12:35] LABS: Blood Urea Nitrogen 9 mg/dL (7-17); Calcium 9.4 mg/dL (8.4-10.2); Carbon Dioxide 22 mmol/L (22-32); Chloride 107 mmol/L (98-107); Estimated Glomerular Filt Rate > 60.0 mL/min (>60); Glucose 103 mg/dL (70-100); HEMOLYSIS < 15 (0-50); Potassium 3.9 mmol/L (3.4-5.1); Sodium 141 mmol/L (137-145)
[2018-10-18 12:52] LABS: HCG Quantitative /Beta subunit 1760.9 mIU/mL
[2018-10-18 14:00] VITALS: BP 122/66; PULSE 72; RESP 20; O2SAT 100
[2018-10-18 14:10] VITALS: BP 108/78; PULSE 87; RESP 18; O2SAT 97
== END 2018-10-18 14:11 | disposition home or self-care (01) ==
PROVIDERS: Emergency Provider Emergency Medicine
DX: O03.4 Incomplete spontaneous abortion without complication (principal)
CPT/HCPCS: 36415; 76830; 76856; 80048; 84702; 85025; 86900; 86901; 99282; 99284

== ENCOUNTER → 2018-10-25 16:48 | Outpatient (CLI) | payer BC, OTHER, MEDICAID, SELFPAY ==
[2018-10-25 18:22] LABS: Appearance Urine UA CLEAR; Bilirubin Urine UA NEGATIVE (NEGATIVE); Color Urine UA YELLOW; Glucose Urine UA NEGATIVE (Negative); Ketones Urine UA NEGATIVE (NEGATIVE); Leukocyte Esterase Urine UA TRACE (NEGATIVE); Nitrite Urine UA NEGATIVE (Negative); Occult Blood Urine UA TRACE-INTACT (Negative); Protein Urine UA NEGATIVE (Negative); Specific Gravity Urine UA 1.015 (1.000-1.035); Urobilinogen Urine UA 0.2 E.U./dL (0.2); pH Urine UA 5.5 (4.5-8.0)
[2018-10-25 18:26] LABS: RBC Urine None Seen (0-5/HPF)
[2018-10-25 18:33] LABS: Bacteria Urine Few (2-10); Squamous Epithelial Cell Urine 1-5 /HPF (0-5/HPF); WBC Urine 0-1/HPF (0-5/HPF)
[2018-10-25 18:34] LABS: Culture Indicated Urine Specimen Cultured
[2018-10-25 19:09] LABS: Progesterone, Total 0.96 ng/mL
[2018-10-25 19:23] LABS: Thyroid Stimulating Hormone 2.12 uIU/mL (0.47-4.68)
[2018-10-25 20:02] LABS: Free T4, Direct Thyroxine 1.33 ng/dL (0.78-2.19)
[2018-10-30 20:13] LABS: Protein C Antigen 133 % normal (70-140)
[2018-10-31 09:19] LABS: PTT-LA Screen 39 seconds (< OR = 40); dDRVVT Screen 48 seconds (< OR = 45)
[2018-10-31 13:29] LABS: B2-Glycoprotein I IgA AB < 9 SAU (< OR = 20); B2-Glycoprotein I IgG AB < 9 SGU (< OR = 20); B2-Glycoprotein I IgM AB < 9 SMU (< OR = 20); Cardiolipin Ab IgA < 11 APL; Cardiolipin Ab IgG < 14 GPL; Cardiolipin Ab IgM < 12 MPL; Phos. Serine AB IgM < 25 U/mL
[2018-11-03 12:53] LABS: dRVVT Screen 48
== END ==
PROVIDERS: PCP Family Medicine; Visit Provider Obstetrics & Gynecology
DX: N96 Recurrent pregnancy loss (principal); Z00.00 Encounter for general adult medical examination without abnormal findings; Z13.220 Encounter for screening for lipoid disorders; Z13.29 Encounter for screening for other suspected endocrine disorder
CPT/HCPCS: 36415; 81003; 81015; 81240; 81241; 81291; 84144; 84439; 84443; 85302; 85306; 85597; 85613; 85730; 86146; 86147; 86148; 87077; 87086; 87186

== ENCOUNTER → 2019-01-12 15:53 | Outpatient (CLI) | payer BC, OTHER, MEDICAID, SELFPAY ==
[2019-01-12 16:40] LABS: Add Manual Diff / Slide Review NO; Basophils Absolute Auto 0 /uL (0-100); Basophils Percent Auto 0.4 % (0-2); Eosinophils Absolute Auto 200 /uL (0-450); Hematocrit 43.2 % (36-46); Hemoglobin 14.2 g/dL (12.0-16.0); Lymphocytes Absolute Auto 2400 /uL (1100-4500); Lymphocytes Percent Auto 20.7 % (25-40); Mean Corpuscular HGB Conc 32.8 % (30-36); Mean Corpuscular Hemoglobin 28.5 PG (26-34); Mean Corpuscular Volume 87.1 fL (80-100); Monocytes Absolute Auto 700 /uL (0-900); Neutrophils Absolute Auto 8100 /uL (1500-7000); Neutrophils Percent Auto 70.9 % (50-75); Platelet Count 346 X10^3/uL (150-400); Red Blood Cell Count 4.96 X10^6/uL (4.0-5.2); Red Cell Distribution Width 14.3 % (11.6-14.8); White Blood Cell Count 11.4 X10^3/uL (4.5-11.0)
[2019-01-12 17:05] LABS: Cholesterol 147 mg/dL (140-199); HDL Cholesterol 50 mg/dL (40-60); LDL Cholesterol Calculated 77 mg/dL (<100); Triglycerides 99 mg/dL (35-150)
[2019-01-12 17:35] LABS: Thyroid Stimulating Hormone 3.01 uIU/mL (0.47-4.68)
[2019-01-16 19:09] LABS: Anti Cardiolipin Antibody IgG <14 GPL
== END ==
PROVIDERS: PCP Family Medicine; Visit Provider Obstetrics & Gynecology
DX: Z00.00 Encounter for general adult medical examination without abnormal findings (principal); Z13.220 Encounter for screening for lipoid disorders; Z13.29 Encounter for screening for other suspected endocrine disorder; N96 Recurrent pregnancy loss
CPT/HCPCS: 36415; 80061; 81240; 81241; 81291; 84443; 85025; 86147

== ENCOUNTER → 2019-02-14 16:47 | Outpatient (CLI) | payer BC, OTHER, MEDICAID, SELFPAY ==
--- NOTE | 2019-02-14 16:48 | DI.MRI.S_ITS ---
PROCEDURE: MR HEAD/BRAIN WO/W CON INDICATIONS: recurrent dizziness, headaches, disorientation TECHNIQUE: Noncontrast axial T1 spin echo, axial T2 fast spin echo, sagittal and axial FLAIR, coronal T2 fast spin echo, axial gradient echo, axial diffusion and ADC through the brain. After the administration of contrast, axial and coronal 3D VIBE or T1 spin echo with fat saturation through the brain. COMPARISON: None. FINDINGS: Image quality: Excellent. CSF Spaces: Basal cisterns are patent. No extra-axial fluid collections. Ventricles are normal in size and shape. Brain: No midline shift. No intracranial bleeds or masses. No abnormal intracranial enhancement. The brainstem appears normal. Diffusion-weighted images demonstrate no acute ischemic insults. No chronic ischemic insults. Normal intravascular flow voids are present. Skull and face: Calvarial marrow is normal in signal. Orbits appear normal. Sinuses: Sinuses and mastoids appear clear. IMPRESSION: Normal for age. Source of current symptoms is not seen. Dictated by: Chavez Dwan M.D. on 02/15/2019 at 8:29 Approved by: Chavez Dawn M.D. on 02/15/2019 at 8:30
== END ==
PROVIDERS: PCP Family Medicine; Visit Provider Registered Nurse
DX: R42 Dizziness and giddiness (principal); R51 Headache; R41.0 Disorientation, unspecified
CPT/HCPCS: 70553; A9579

== ENCOUNTER 2019-05-29 19:04 | Emergency (ER) | payer BC, OTHER, MEDICAID, SELFPAY ==
[2019-05-29 19:16] VITALS: BP 108/71; PULSE 80; RESP 18; TEMP 36.4; O2SAT 100
[2019-05-29 21:15] VITALS: BP 108/81; PULSE 77; RESP 18; O2SAT 100
--- NOTE | 2019-05-29 21:28 | ED.ABDPAIN ---
HPI - Abdominal Pain General Chief Complaint: Abdominal Pain Stated Complaint: KIDNEY PAIN Time Seen by Provider: 05/29/19 21:20 Source: patient Mode of arrival: Ambulatory Limitations: no limitations History of Present Illness HPI narrative: The patient has a 3 day history of left mid back pain radiating to the left flank and to the left lower quadrant. She is in extreme pain, she has no fever chills. She denies dysuria hematuria. She has no history of kidney stones or kidney infection. Her appetite is normal. She has no nausea, vomiting, diarrhea or constipation. She has no history of colon disease. Her LMP was normal time, but light. She has no other gynecological or urinary symptoms. She works at a [employer]. She does a lot a lifting. She can recall no strain or sprain. She has no chronic illness, she is on no regular medications, but has have a history of ADHD.. She does admit to significant anxiety for being here. Related Data Previous Rx's Medication Instructions Recorded ondansetron HCl 4 mg tablet 4 mg PO Q6-8H PRN #20 tab 01/13/19 Allergies Allergy/AdvReac Type Severity Reaction Status Date / Time bee pollen [BEE POLLEN] Allergy Severe Swelling Verified 02/06/19 14:43 shellfish derived Allergy Severe Anaphalaxis Verified 02/06/19 14:43 [SHELLFISH DERIVED] Review of Systems Review of Systems ROS Unobtainable: All systems reviewed & are unremarkable except as noted in HPI and below Constitutional Constitutional: Denies chills, Denies fever(s), Denies lethargy and Denies weakness ENT Ears, Nose, Mouth, and Throat: Denies neck pain and Denies sore throat Cardiovascular Cardiovascular: Denies chest pain, Denies lightheadedness, Denies palpitations, Denies dyspnea and Denies orthopnea Respiratory Respiratory: Denies cough, Denies dyspnea and Denies wheezing Gastrointestinal Gastrointestinal: Reports abdominal pain, Denies change in bowel habits, Denies diarrhea, Denies nausea and Denies vomiting Genitourinary Genitourinary: Denies hematuria, Denies dysuria, Denies pelvic pain, Reports flank pain, Denies urinary incontinence and Denies urinary urgency Musculoskeletal Musculoskeletal: Denies neck pain and Denies numbness Comments: Left midback pain, see HPI Integumentary/Breasts Skin/Breast: Denies pruritus, Denies erythema, Denies rash and Denies wounds Neurologic Neurologic: Denies numbness and Denies weakness Endocrine Endocrine: Denies palpitations Allergic/Immunologic Allergic/Immunologic: Denies wheezing Patient History Medical History ADHD (Chronic) Ankle pain (Chronic) Asthma (Chronic) Endometriosis (Chronic) Foot pain (Chronic) Headache (Chronic) Irregular menstrual cycle (Chronic) Painful menstrual periods (Chronic) Rosacea (Chronic) Family History Father Heart disease Mother Cancer Grandfather Diabetes mellitus Hypertension Stroke Social History Smoking Status: Never smoker alcohol intake: current substance use type: does not use Smoking Status: Never smoker alcohol intake frequency: 0-2 drinks per day Substance Use Type: does not use Exam Initial Vital Signs Initial Vital Signs: Vital Signs Temperature 97.6 F 05/29/19 19:16 Pulse Rate 80 05/29/19 19:16 Respiratory Rate 18 05/29/19 19:16 Blood Pressure 108/71 05/29/19 19:16 Pulse Oximetry 100 05/29/19 19:16 Const General: cooperative and well developed Nutritional Appearance: well nourished Orientation: alert, awake and oriented x3 Other: Obviously anxious HENMT Head: normocephalic and atraumatic Face and sinus: face symmetric Mouth: oral mucosae normal Teeth and gingiva: dentition normal Throat: posterior oropharynx normal Eyes Conjunctivae: conjunctivae normal Resp Effort & Inspection: normal respiratory effort, able to speak in complete sentences, no respiratory distress and no use of accessory muscles Auscultation: clear to auscultation bilaterally, no rales, no rhonchi and no wheezes Cardio Rate: regular rate Rhythm: regular rhythm Heart Sounds: no click, no gallops, no murmurs and no rubs Pulses: normal peripheral pulses GI Inspection: non-distended Palpation: soft, no hepatosplenomegaly and No pulsatile mass Auscultation: normal bowel sounds Other: Left lower quadrant tenderness with out guarding or distention or rebound. Back/Spine/Pelvis Back: CVA tenderness left Skin General: no rashes or lesions noted, No jaundice and No petechiae Neuro General: alert, oriented x3, gait normal and no focal motor deficits Speech: speech normal Extrem General: full ROM, no clubbing, cyanosis or edema, no pedal edema and no calf tenderness Course Course Course Narrative: The pain has improved with IV Toradol. There is no obvious GI or your, or urinary issue. There is no suggestion of infection. She has a job that requires lifting and twisting, I suspect muscle strain. She will revise the take Advil, and return here or see her doctor if symptoms continue. Orders Ordered: ED Orders 05/29/19 21:38 Complete Blood Count AUTO DIFF Stat Comprehensive Metabolic Panel Stat Discontinued Medications Sodium Chloride (Normal Saline 0.9%) 1,000 mls @ 1,000 mls/hr IV BOLUS ONE Stop: 05/29/19 22:26 Last Admin: 05/29/19 21:44 Dose: 1,000 mls/hr Documented by: DARIUS Ketorolac Tromethamine (Toradol) 30 mg IV NOW ONE Stop: 05/29/19 21:28 Last Admin: 05/29/19 21:43 Dose: 30 mg Documented by: DARIUS Vital Signs Vital signs: Vital Signs - 8 hr 05/29/19 19:16 05/29/19 21:15 05/29/19 21:48 Temperature 97.6 F Pulse Rate 80 77 68 Respiratory Rate 18 18 Blood Pressure 108/71 Blood Pressure [Left Arm] 108/81 121/90 Pulse Oximetry 100 100 100 05/29/19 22:40 Temperature Pulse Rate 69 Respiratory Rate Blood Pressure Blood Pressure [Left Arm] 95/72 Pulse Oximetry 100 MDM - Abdominal Pain Lab Data Result diagrams: 05/29/19 21:38 05/29/19 21:38 Labs: Lab Results 05/29/19 05/29/19 Range/Units 21:38 21:38 WBC 9.7 (4.5-11.0) X10^3/uL RBC 4.98 (4.0-5.2) X10^6/uL Hgb 14.3 (12.0-16.0) g/dL Hct 42.4 (36-46) % MCV 85.0 (80-100) fL MCH 28.7 (26-34) PG MCHC 33.7 (30-36) % RDW 13.8 (11.6-14.8) % Plt Count 392 (150-400) X10^3/uL Neut % (Auto) 55.6 (50-75) % Lymph % (Auto) 33.0 (25-40) % [place] % (Auto) 6.8 (3-14) % Eos % (Auto) 3.2 (2-4) % Baso % (Auto) 1.4 (0-2) % Neut # (Auto) 5400 (6692-9763) /uL Lymph # (Auto) 3200 (9406-8689) /uL [place] # (Auto) 700 (0-900) /uL Eos # (Auto) 300 (0-450) /uL Baso # (Auto) 100 (0-100) /uL Sodium 139 (137-145) mmol/L Potassium TNP Chloride 103 (98-107) mmol/L Carbon Dioxide 28 (22-32) mmol/L BUN 11 (7-17) mg/dL Creatinine 0.60 (0.52-1.04) mg/dL Estimated GFR > 60.0 (>60) mL/min BUN/Creatinine Ratio 18.3 (6-22) Glucose 85 (70-100) mg/dL Calcium 9.6 (8.4-10.2) mg/dL Total Bilirubin 0.7 (0.2-1.3) mg/dL AST TNP ALT 26 (<35) IU/L Alkaline Phosphatase 59 (38-126) U/L Total Protein 8.7 H (6.3-8.2) g/dL Albumin 4.9 (3.5-5.0) g/dL Globulin 3.8 (1.7-4.1) g/dL Albumin/Globulin Ratio 1.3 (1.0-2.8) Point of care testing: Point of Care Testing Test Results Negative Urine Dip Bedside Urine Glucose Negative Bedside Urine Bilirubin - Negative Bedside Urine Ketone - Negative Urine Specific [place] 1.005 Bedside Urine Occult Blood - Negative Bedside Urine pH 7.5 Bedside Urine Protein - Negative Bedside Urine Urobilinogen - Negative Bedside Urine Nitrite - Negative Bedside Urine Leukocytes - Negative Esterase Discharge Plan Departure Patient Disposition: Home Clinical Impression: Abdominal wall pain in left flank Instructions: DI for Abdominal Pain-Adult Activity Restrictions/Additional Instructions: Advil 3 tablets every 6 hours as needed for pain. Follow-up via doctor in 3-4 days if the pain persists. Return here if he has increasing pain, fever or vomiting. Prescriptions: No Action ondansetron HCl 4 mg tablet 4 mg PO Q6-8H PRN (Reason: nausea and vomiting) Qty: 20 RF: 0 Referrals: Christa Rodriguez DO [Primary Care Provider] -
[2019-05-29] MEDS: KETOROLAC 60 MG/2 ML VIAL 30 MG IV (21:43)
[2019-05-29] MEDS: SODIUM CHLORIDE 0.9% 1,000 ML 1000 ML IV (21:44)
[2019-05-29 21:48] VITALS: BP 121/90; PULSE 68; O2SAT 100
[2019-05-29 21:50] LABS: Add Manual Diff / Slide Review NO; Basophils Absolute Auto 100 /uL (0-100); Basophils Percent Auto 1.4 % (0-2); Eosinophils Absolute Auto 300 /uL (0-450); Eosinophils Percent Auto 3.2 % (2-4); Hematocrit 42.4 % (36-46); Hemoglobin 14.3 g/dL (12.0-16.0); Lymphocytes Absolute Auto 3200 /uL (1100-4500); Mean Corpuscular HGB Conc 33.7 % (30-36); Mean Corpuscular Hemoglobin 28.7 PG (26-34); Monocytes Absolute Auto 700 /uL (0-900); Monocytes Percent Auto 6.8 % (3-14); Neutrophils Absolute Auto 5400 /uL (1500-7000); Neutrophils Percent Auto 55.6 % (50-75); Platelet Count 392 X10^3/uL (150-400); Red Blood Cell Count 4.98 X10^6/uL (4.0-5.2); Red Cell Distribution Width 13.8 % (11.6-14.8); White Blood Cell Count 9.7 X10^3/uL (4.5-11.0)
--- NOTE | 2019-05-29 21:51 | PC.NURSE ---
reports normal bowel and urine patterns
[2019-05-29 22:05] LABS: Alanine Aminotransferase 26 IU/L (<35); Albumin 4.9 g/dL (3.5-5.0); Albumin Globulin Ratio 1.3 (1.0-2.8); Alkaline Phosphatase 59 U/L (38-126); BUN Creatinine Ratio 18.3 (6-22); Bilirubin Total 0.7 mg/dL (0.2-1.3); Blood Urea Nitrogen 11 mg/dL (7-17); Calcium 9.6 mg/dL (8.4-10.2); Carbon Dioxide 28 mmol/L (22-32); Chloride 103 mmol/L (98-107); Estimated Glomerular Filt Rate > 60.0 mL/min (>60); Globulin 3.8 g/dL (1.7-4.1); Glucose 85 mg/dL (70-100); Sodium 139 mmol/L (137-145); Total Protein 8.7 g/dL (6.3-8.2)
[2019-05-29 22:10] LABS: HEMOLYSIS 126 (0-50)
[2019-05-29 22:40] VITALS: BP 95/72; PULSE 69; O2SAT 100
== END 2019-05-29 23:35 | disposition home or self-care (01) ==
PROVIDERS: Emergency Provider Emergency Medicine; PCP Family Medicine
DX: R10.9 Unspecified abdominal pain (principal); R10.32 Left lower quadrant pain
CPT/HCPCS: 36415; 80053; 81003; 81025; 85025; 96361; 96374; 99284; J1885

== ENCOUNTER → 2020-03-09 13:49 | Outpatient (CLI) | payer BC, OTHER, MEDICAID, SELFPAY ==
[2020-03-11 09:33] LABS: COVID19 Sendout Not Detected (Not Detect)
== END ==
PROVIDERS: PCP Family Medicine; Visit Provider Nurse Practitioner
DX: Z11.59 Encounter for screening for other viral diseases (principal)
CPT/HCPCS: 87635

== ENCOUNTER → 2020-03-17 14:18 | Outpatient (CLI) | payer BC, OTHER, MEDICAID, SELFPAY ==
[2020-03-18 07:45] LABS: COVID19 Sendout Not Detected (Not Detect)
== END ==
PROVIDERS: PCP Family Medicine; Visit Provider Physician Assistant
DX: Z11.59 Encounter for screening for other viral diseases (principal)
CPT/HCPCS: 87635

== ENCOUNTER → 2022-04-27 14:46 | Outpatient (CLI) | payer BC, OTHER, MEDICAID, SELFPAY ==
[2022-04-27 15:43] LABS: Add Manual Diff / Slide Review NO; Basophils Absolute Auto 0 /uL (0-100); Basophils Percent Auto 0.5 % (0-2); Eosinophils Absolute Auto 100 /uL (0-450); Eosinophils Percent Auto 1.8 % (2-4); Hemoglobin 12.9 g/dL (12.0-16.0); Lymphocytes Absolute Auto 2200 /uL (1100-4500); Lymphocytes Percent Auto 27.7 % (25-40); Mean Corpuscular HGB Conc 33.1 % (30-36); Mean Corpuscular Hemoglobin 28.4 PG (26-34); Mean Corpuscular Volume 85.8 fL (80-100); Monocytes Absolute Auto 500 /uL (0-900); Monocytes Percent Auto 6.4 % (3-14); Neutrophils Absolute Auto 5100 /uL (1500-7000); Neutrophils Percent Auto 63.6 % (50-75); Platelet Count 369 X10^3/uL (150-400); Red Blood Cell Count 4.55 X10^6/uL (4.0-5.2); Red Cell Distribution Width 13.8 % (11.6-14.8); White Blood Cell Count 8.1 X10^3/uL (4.5-11.0)
[2022-04-27 16:04] LABS: Alanine Aminotransferase 37 IU/L (<35); Albumin 4.4 g/dL (3.5-5.0); Albumin Globulin Ratio 1.3 (1.0-2.8); Alkaline Phosphatase 76 U/L (38-126); Aspartate Aminotransferase 26 IU/L (14-36); BUN Creatinine Ratio 12.7 (6-22); Bilirubin Total 0.3 mg/dL (0.2-1.3); Blood Urea Nitrogen 10 mg/dL (7-17); Carbon Dioxide 24 mmol/L (22-32); Chloride 103 mmol/L (98-107); Estimated Glomerular Filt Rate > 60 mL/min (>60); Globulin 3.4 g/dL (1.7-4.1); Glucose 87 mg/dL (70-100); HEMOLYSIS < 15 (0-50); Lipase 139 U/L (23-300); Potassium 3.5 mmol/L (3.4-5.1); Sodium 137 mmol/L (137-145); Total Protein 7.8 g/dL (6.3-8.2)
== END ==
PROVIDERS: PCP Registered Nurse Diabetes Educator; Referring Provider Registered Nurse Diabetes Educator; Visit Provider Registered Nurse Diabetes Educator
DX: R10.13 Epigastric pain (principal); R11.2 Nausea with vomiting, unspecified; R14.2 Eructation
CPT/HCPCS: 36415; 80053; 83690; 84443; 85025